=== PATIENT | female | born 1980 | race Caucasian/White ===

== ENCOUNTER 2016-10-12 19:18 | Emergency (ER) | payer SELFPAY ==
[2016-10-12] MEDS ORDERED: PREDNISONE 20 MG TABLET PO ONE (22:44)
[2016-10-12] MEDS ORDERED: LIDOCAINE 5% (700 MG) TRANSDERMAL ADH..PATCH TP ONE (22:44)
--- NOTE | 2016-10-12 22:52 | ER Document Report ---
ED General - General Chief Complaint: Low Back Pain Stated Complaint: BACK PAIN Time Seen by Provider: 10/12/16 22:44 TRAVEL OUTSIDE OF THE [place] IN LAST 30 DAYS: No - HPI Patient complains to provider of: Low back pain Notes: Patient coming in for evaluation of low back pain. 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 Patient states she was lifting heavy objects over past few days has had exacerbation now pain going down her right leg. Patient denies any IV drug abuse denies any fever chills nausea vomiting denies any numbness or tingling denies any saddle paresthesias denies any bowel or bladder incontinence. - Related Data Allergies/Adverse Reactions: ranitidine HCl [From Zantac] Allergy (Verified 10/22/11 11:34) Past Medical History - Social History Smoking Status: Unknown if Ever Smoked Chew tobacco use (# tins/day): No Frequency of alcohol use: None Drug Abuse: None Family History: Reviewed & Not Pertinent Renal/ Medical History: Denies: Hx Peritoneal Dialysis Past Surgical History: Reports: Hx Section, Hx Cholecystectomy - Immunizations Hx Diphtheria, Pertussis, Tetanus Vaccination: Yes Review of Systems - Review of Systems Constitutional: No symptoms reported EENT: No symptoms reported Cardiovascular: No symptoms reported Respiratory: No symptoms reported Gastrointestinal: No symptoms reported Genitourinary: No symptoms reported Female Genitourinary: No symptoms reported Musculoskeletal: Back pain Skin: No symptoms reported Hematologic/Lymphatic: No symptoms reported Neurological/Psychological: No symptoms reported -: Yes All other systems reviewed and negative Physical Exam - Vital signs Vitals: Temp Pulse Resp BP Pulse Ox 98.4 F 76 22 H 121/72 100 10/12/16 20:03 10/12/16 20:03 10/12/16 20:03 10/12/16 20:03 10/12/16 20:03 Interpretation: Normal - General General appearance: Appears well, Alert - HEENT Head: Normocephalic, Atraumatic Eyes: Normal Pupils: PERRL - Respiratory Respiratory status: No respiratory distress Chest status: Nontender Breath sounds: Normal Chest palpation: Normal - Cardiovascular Rhythm: Regular Heart sounds: Normal auscultation Murmur: No - Abdominal Inspection: Normal Distension: No distension Bowel sounds: Normal Tenderness: Nontender Organomegaly: No organomegaly - Back Back: Normal, Tender - Tenderness to the right paraspinal region palpation of the piriformis area does reproduce patient's pain - Extremities General upper extremity: Normal inspection, Nontender, Normal color, Normal ROM , Normal temperature General lower extremity: Normal inspection, Nontender, Normal color, Normal ROM , Normal temperature, Normal weight bearing. No: Jem's sign - Neurological Neuro grossly intact: Yes Cognition: Normal Orientation: AAOx4 [place] Coma Scale Eye Opening: Spontaneous Elizabeth Coma Scale Verbal: Oriented Elizabeth Coma Scale Motor: Obeys Commands [place] Coma Scale Total: 15 Speech: Normal Motor strength normal: LUE, RUE, LLE, RLE Sensory: Normal - Psychological Associated symptoms: Normal affect, Normal mood - Skin Skin Temperature: Warm Skin Moisture: Dry Skin Color: Normal Course - Re-evaluation Re-evalutation: 10/13/16 00:10 The patient presents with low back pain without signs of spinal cord compression , cauda equina syndrome, infection, aneurysm, or other serious etiology. The patient is neurologically intact. Given the extremely low risk of these diagnoses further testing and evaluation for these possibilities does not appear to be indicated at this time. The patient has been instructed to return if the symptoms worsen or change in any way. - Vital Signs Vital signs: Temp Pulse Resp BP Pulse Ox 98.2 F 102 H 16 136/77 H 100 10/12/16 23:24 10/12/16 23:24 10/12/16 23:24 10/12/16 23:24 10/12/16 23:24 Discharge - Discharge Clinical Impression: Low back pain Qualifiers: Chronicity: acute Back pain laterality: right Sciatica presence: with sciatica Sciatica laterality: sciatica of left side Qualified Code(s): M54.42 - Lumbago with sciatica, left side Condition: Good Disposition: HOME, SELF-CARE Instructions: Oral Narcotic Medication ([facility]), Ice Packs ([facility]), Low Back Pain ( [facility]), Warm Packs ([facility]), Stretching Exercises for the Back ([facility]) Additional Instructions: Take medication as prescribed. Return to ER symptoms worsen. Follow-up with your primary care physician. Is very important to see a specialist for your back pain is that we do not have any other methods of treating you here in the ER. Prescriptions: Oxycodone HCl 5 mg PO Q6 #20 tablet Prednisone [Deltasone] 60 mg PO DAILY #24 tablet Forms: Return to Work
[2016-10-12 23:26] VITALS: BP 136/77
== END 2016-10-12 23:25 | disposition home or self-care (01) ==
LOC: ER 19:18
DX: M54.42 Lumbago with sciatica, left side (principal); M54.5 Low back pain; M54.9 Dorsalgia, unspecified
CPT/HCPCS: 99283; J7512

== ENCOUNTER 2017-07-20 16:27 | Emergency (ER) | payer SELFPAY ==
[2017-07-20 16:34] VITALS: BP 129/77
[2017-07-20] MEDS ORDERED: IBUPROFEN 800 MG TABLET PO ONE (17:01)
--- NOTE | 2017-07-20 17:13 | ER Document Report ---
ED Extremity Problem, Upper - General Chief Complaint: Wrist Pain Stated Complaint: RIGHT WRIST PAIN, SWELLING Time Seen by Provider: 07/20/17 16:54 Mode of Arrival: Ambulatory Information source: Patient Notes: 37-year-old female presented to ED for complaint of pain to her right wrist. She states she woke up was at this morning. She states there is a small insect bite on her right second finger but there is no redness to this finger or down the hand she says the bite is been there for several days. She states as the day has progressed the pain has moved up to her forearm. She is holding the wrist and hand very stiff. There is no fever or swelling to the hand or wrist. She does have good pedal pulses. Her cap refills are brisk. TRAVEL OUTSIDE OF THE [place] IN LAST 30 DAYS: No - HPI Patient complains to provider of: Pain, Right, Wrist Onset: This morning Recent injury: No - This morning when she woke up Quality of pain: Achy, Sharp, Throbbing Severity of pain: Moderate Pain Level: 4 Associated symptoms: None Exacerbated by: Movement, Exertion Relieved by: Rest, Positioning Similar symptoms previously: No Recently seen / treated by doctor: No - Related Data Allergies/Adverse Reactions: ranitidine HCl [From Zantac] Allergy (Verified 10/22/11 11:34) Past Medical History - General Information source: Patient - Social History Smoking Status: Never Smoker Cigarette use (# per day): No Chew tobacco use (# tins/day): No Smoking Education Provided: No Frequency of alcohol use: Occasional Drug Abuse: None Occupation: [employer] Lives with: Spouse/Significant other - Significant other and children Family History: Reviewed & Not Pertinent Patient has suicidal ideation: No Patient has homicidal ideation: No - Past Medical History Cardiac Medical History: Reports: None Pulmonary Medical History: Reports: None EENT Medical History: Reports: None Neurological Medical History: Reports: None Endocrine Medical History: Reports: None Renal/ Medical History: Reports: None Malignancy Medical History: Reports: None GI Medical History: Reports: None Musculoskeltal Medical History: Reports None Skin Medical History: Reports None Psychiatric Medical History: Reports: None Traumatic Medical History: Reports: None Infectious Medical History: Reports: None Past Surgical History: Reports: Hx Section, Hx Cholecystectomy, Hx Oral Surgery - This 21, Hx Tonsillectomy - Immunizations Hx Diphtheria, Pertussis, Tetanus Vaccination: Yes - 2012 Review of Systems - Review of Systems Constitutional: No symptoms reported EENT: No symptoms reported Cardiovascular: No symptoms reported Respiratory: No symptoms reported Gastrointestinal: No symptoms reported Genitourinary: No symptoms reported Female Genitourinary: No symptoms reported Musculoskeletal: Other - Right wrist pain Skin: No symptoms reported Hematologic/Lymphatic: No symptoms reported Neurological/Psychological: No symptoms reported -: Yes All other systems reviewed and negative Physical Exam - Vital signs Vitals: Temp Pulse Resp BP Pulse Ox 98.5 F 78 18 129/77 H 98 07/20/17 16:33 07/20/17 16:33 07/20/17 16:33 07/20/17 16:33 07/20/17 16:33 Interpretation: Normal - General General appearance: Appears well, Alert - HEENT Head: Normocephalic, Atraumatic Eyes: Normal Pupils: PERRL - Respiratory Respiratory status: No respiratory distress Chest status: Nontender Breath sounds: Normal Chest palpation: Normal - Cardiovascular Rhythm: Regular Heart sounds: Normal auscultation Murmur: No - Abdominal Inspection: Normal Distension: No distension Bowel sounds: Normal Tenderness: Nontender Organomegaly: No organomegaly - Back Back: Normal, Nontender - Extremities General upper extremity: Normal color, Normal temperature General lower extremity: Normal inspection, Nontender, Normal color, Normal ROM , Normal temperature, Normal weight bearing. No: Jem's sign Forearm: Tender. No: Abrasion, Deformity, Ecchymosis, Instability, Laceration, Other Wrist: Tender, Limited ROM. No: Abrasion, Axial load of thumb pain, Deformity, Dislocation, Ecchymosis, Instability, Laceration, Navicular tenderness Hand: Tender, No evidence of human bite, No evidence of FB. No: Swelling - Neurological Neuro grossly intact: Yes Cognition: Normal Orientation: AAOx4 [place] Coma Scale Eye Opening: Spontaneous Elizabeth Coma Scale Verbal: Oriented [place] Coma Scale Motor: Obeys Commands [place] Coma Scale Total: 15 Speech: Normal Motor strength normal: LUE, RUE, LLE, RLE Sensory: Normal - Psychological Associated symptoms: Normal affect, Normal mood - Skin Skin Temperature: Warm Skin Moisture: Dry Skin Color: Normal Course - Re-evaluation Re-evalutation: 07/20/17 17:40 X-ray negative for any acute injury. X-ray stated there may be a lucency over the scaphoid from an old injury but no new injuries. Patient was treated with ibuprofen, cock-up splint and sling applied. Patient was encouraged to follow- up with orthopedics if the pain continues or increases. She was also instructed she can return to the ED if with any increase in pain redness or swelling. Patient verbalized understanding of instructions and agreement with treatment plan. - Vital Signs Vital signs: Temp Pulse Resp BP Pulse Ox 98.5 F 78 18 129/77 H 98 07/20/17 16:33 07/20/17 16:33 07/20/17 16:33 07/20/17 16:33 07/20/17 16:33 - Diagnostic Test Radiology reviewed: Image reviewed, Reports reviewed Procedures - Immobilization Right Wrist Time completed: 17:40 Pre-Proc Neuro Vasc Exam: Normal Immobilizer type: Cock-up, Sling Performed by: PCT Post-Proc Neuro Vasc Exam: Normal Alignment checked and good: Yes Discharge - Discharge Clinical Impression: Right wrist pain Condition: Stable Disposition: HOME, SELF-CARE Additional Instructions: You were seen today for right wrist pain. Denies any injury to the right wrist or hand. A cock-up splint has been applied to the wrist to help with the discomfort. ICE & ELEVATION: Apply ice packs frequently against the painful area. Many different schedules are recommended, such as "20 minutes on, 20 minutes off" or "one hour ice, two hours rest." If you need to work, you may need to go longer between ice treatments. You should plan to have the area ice packed AT LEAST one- fourth of the time. The ice should be applied over the wrap, tape, or splint, or over a layer of cloth -- not directly against the skin. Some ice bags have a built-in cloth and can be put directly on the skin. Your injured part should be elevated as much as possible over the next 48 hours. Try to keep the injury above the level of the heart. Avoid use of the injured area. Elevation and rest will decrease the swelling. USE OF [id number] IBUPROFEN: Ibuprofen (Advil, Nuprin, Medipren, Motrin IB) is a medication for fever and pain control. In addition, it has anti- inflammatory effects which may be beneficial, especially in the treatment of injuries. It's best to take ibuprofen with food. Persons with ulcer disease or allergy to aspirin should notify their physician of this before taking ibuprofen. Ibuprofen can be given every four to six hours, for a total of four doses daily. Age Pain or fever dose Antiinflammatory dose 6-8 yr 200 mg (1 tab) 200 mg (1 tab) 9-11 yr 200 mg (1 tab) 200-400 mg (1-2 tab) 11-14 yr 200-400 mg (1-2 tab) 400 mg (2 tab) 15-adult 400 mg (2 tab) 600 mg (3 tab) FOLLOW-UP CARE: If you have been referred to a physician for follow-up care, call the physician s office for an appointment as you were instructed or within the next two days. If you experience worsening or a significant change in your symptoms, notify the physician immediately or return to the Emergency Department at any time for re-evaluation. Forms: Elevated Blood Pressure Referrals: ASHWINI GROSS MD [ACTIVE STAFF] - Follow up as needed
--- NOTE | 2017-07-20 17:33 | RADIOLOGY REPORT (SQ) ---
EXAM DESCRIPTION: WRIST RIGHT 3 VIEWS COMPLETED DATE/TIME: 07/20/2017 5:13 pm REASON FOR STUDY: pain to right wrist COMPARISON: None. NUMBER OF VIEWS: Three views. TECHNIQUE: AP, lateral, and oblique radiographic images acquired of the right wrist. LIMITATIONS: None. FINDINGS: MINERALIZATION: Normal. BONES: No acute fracture or dislocation. No worrisome bone lesions. Normal alignment. SOFT TISSUES: Subtle area of calcification along the radial margin of the distal scaphoid. The soft tissues otherwise normal. OTHER: No other significant finding. IMPRESSION: NO RADIOGRAPHIC EVIDENCE OF ACUTE INJURY. SUBTLE SOFT TISSUE CALCIFICATION ALONG THE RA DIAL ASPECT OF THE DISTAL SCAPHOID COULD REPRESENT EARLY CHONDROCALCINOSIS OR SEQUELA TO PRIOR INJURY . TECHNICAL DOCUMENTATION: JOB ID: [id number] [employer]- All Rights Reserved Reading location - IP/workstation name: [email or web address]
== END 2017-07-20 17:50 | disposition home or self-care (01) ==
LOC: ER 16:27
PROC: 2W3CX1Z Immobilization of Right Lower Arm using Splint (ICD-10-PCS; principal; 2017-07-20)
DX: M25.531 Pain in right wrist (principal); M25.431 Effusion, right wrist; Z90.49 Acquired absence of other specified parts of digestive tract
CPT/HCPCS: 99283; 73110; L3908

== ENCOUNTER 2018-03-06 14:45 | Emergency (ER) | payer SELFPAY ==
--- NOTE | 2018-03-06 17:21 | ER Document Report ---
HPI - HPI Patient complains to provider of: facial droop Time Seen by Provider: 03/06/18 17:02 Pain Level: 1 Context: Patient is a 38-year-old female who has noticed for the last 3 days she has not been a true smile on the left side of her face. Patient states she initially started with some pain around her left ear and then noted the left facial droop and she was unable to fully close her left eye. Patient states it has gotten worse over the last couple days which is what concerned her and brought her to the emergency room. Patient denies any fever, runny nose, cough, rash, nausea, vomiting, diarrhea, headache. Past medical history: None Medications: None Allergies: None Surgical history: None Patient denies cigarette use, denies illicit drug use, admits to occasional EtOH use - REPRODUCTIVE Reproductive: DENIES: : Past Medical History - General Information source: Patient - Social History Smoking Status: Never Smoker Family History: Reviewed & Not Pertinent Renal/ Medical History: Denies: Hx Peritoneal Dialysis Past Surgical History: Reports: Hx Section, Hx Cholecystectomy, Hx Oral Surgery - This , Hx Tonsillectomy - Immunizations Hx Diphtheria, Pertussis, Tetanus Vaccination: Yes Vertical Provider Document - CONSTITUTIONAL Agree With Documented VS: Yes Notes: GENERAL: Alert, interacts well. No acute distress. Obvious left-sided facial droop noted with loss of nasolabial fold. HEAD: Normocephalic, atraumatic. Patient unable to cause a wrinkle in her left forehead or move her left eyebrow. EYES: Pupils equal, round, and reactive to light. Extraocular movements intact. Patient is unable to fully close her left eye on her own. ENT: Oral mucosa moist, tongue midline. TMs intact nonerythematous, nonbulging bilaterally. Negative tragal tenderness bilaterally. No mastoid erythema or swelling noted bilaterally NECK: Full range of motion. Supple. Trachea midline. LUNGS: Clear to auscultation bilaterally, no wheezes, rales, or rhonchi. No respiratory distress. HEART: Regular rate and rhythm. No murmur ABDOMEN: Soft, non-tender. Non-distended. Bowel sounds present in all 4 quadrants. EXTREMITIES: Moves all 4 extremities spontaneously. No edema, normal radial and dorsalis pedis pulses bilaterally. No cyanosis. BACK: no cervical, thoracic, lumbar midline tenderness. No saddle anesthesia, normal distal neurovascular exam. NEUROLOGICAL: Alert and oriented x3. Normal speech. PSYCH: Normal affect, normal mood. SKIN: Warm, dry, normal turgor. No rashes or lesions noted. - INFECTION CONTROL TRAVEL OUTSIDE OF THE [place] IN LAST 30 DAYS: No Course - Re-evaluation Re-evalutation: Patient's exam is consistent with Beckham's palsy. She is unable to fully close the left eye without use of her hand. She does have a left facial droop noted with loss of left nasolabial fold. Patient is also unable to raise her left eyebrow or cause wrinkling to the left side of her forehead. Discussed Beckham's palsy diagnosis with patient at length at bedside. No need for CT imaging at this time. Close return precautions discussed. - Vital Signs Vital signs: Temp Pulse Resp BP Pulse Ox 98.5 F 94 16 131/98 H 96 03/06/18 14:53 03/06/18 14:53 03/06/18 14:53 03/06/18 14:53 03/06/18 14:53 Discharge - Discharge Clinical Impression: Beckham's palsy Condition: Stable Disposition: HOME, SELF-CARE Instructions: Beckham's Palsy ([facility]), Steroid Medication Additional Instructions: As we discussed you have been seen and treated in the emergency department for something called Beckham's palsy. Please take medications as prescribed. Please also use [id number] normal saline solution drops in your left eye as often as needed. Please as we discussed to try to taper that left eye shut at night to prevent it from drying out. Please return to the emergency room for any other concerning symptoms. Please follow-up with your primary care provider in the next 24-48 hours. Prescriptions: Prednisone [Deltasone 20 mg Tablet] 4 tab PO DAILY 7 Days tablet Valacyclovir HCl [Valacyclovir] 1,000 mg PO TID 7 Days tablet
[2018-03-06 17:32] VITALS: BP 128/96
== END 2018-03-06 17:22 | disposition home or self-care (01) ==
LOC: ER 14:45
DX: G51.0 Bell's palsy (principal)
CPT/HCPCS: 99284